=== PATIENT | male | born 1980 | race American Indian/Alaskan Native ===

== ENCOUNTER 2021-03-16 09:19 | Emergency (ER) | payer SELFPAY ==
[2021-03-16 09:50] VITALS: BP 145/90
--- NOTE | 2021-03-16 10:25 | Emergency Department Report ---
ED Extremity Problem HPI - General Chief complaint: Extremity Injury, Lower Stated complaint: RT KNEE PAIN Time Seen by Provider: 03/16/21 10:09 Source: patient Mode of arrival: Ambulatory Limitations: No Limitations - History of Present Illness Initial comments: Patient is a 40-year-old male presents emergency room complaints of right knee pain that began 2 days ago. 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 He states he does heavy lifting and frequently has to get in and out of the truck. 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 He states he is not sure if he might have tweaked his knee getting out of the truck. He denies falling to the ground or any significant trauma. He denies ever injuring this knee in the past. He is ambulatory. He denies any numbness, weakness, leg swelling, calf pain. No past medical history. Allergy to penicillin. Severity scale (0 -10): 5 - Related Data Previous Rx's Medication Instructions Recorded Last Taken Type Menthol/Camphor [[place] Anthony 1 applicatio TP BID #18 oint...g. 03/16/21 Unknown Rx Ointment] Naproxen 375 mg PO BID PRN #14 tablet 03/16/21 Unknown Rx Allergies Allergy/AdvReac Type Severity Reaction Status Date / Time Penicillins Allergy Rash Verified 03/16/21 09:52 ED Review of Systems ROS: Stated complaint: RT KNEE PAIN Other details as noted in HPI Comment: All other systems reviewed and negative ED Past Medical Hx - Medications Home Medications: Home Medications Medication Instructions Recorded Confirmed Last Taken Type Menthol/Camphor [[place] Anthony 1 applicatio TP BID #18 oint...g. 03/16/21 Unknown Rx Ointment] Naproxen 375 mg PO BID PRN #14 tablet 03/16/21 Unknown Rx ED Physical Exam - General Limitations: No Limitations General appearance: alert, in no apparent distress - Head Head exam: Present: atraumatic, normocephalic - Eye Eye exam: Present: normal appearance - ENT ENT exam: Present: mucous membranes moist - Extremities Exam Extremities exam: Present: other (no bony ttp of the RLE, no edema to the RLE, no skin changes, FROM of the RLE, mild discomfort with varus stress, no deformity, neurovascularly intact) - Neurological Exam Neurological exam: Present: alert, oriented X3 - Psychiatric Psychiatric exam: Present: normal affect, normal mood - Skin Skin exam: Present: warm, dry, intact ED Course Vital Signs 03/16/21 03/16/21 09:47 11:11 Temperature 99.0 F Pulse Rate 100 H 88 Respiratory 16 Rate Blood Pressure 145/90 O2 Sat by Pulse 92 97 Oximetry ED Medical Decision Making - Radiology Data Radiology results: report reviewed Ordering Physician: JAS BILLY Date of Service: 03/16/21 Procedure(s): XR knee 3V RT Accession Number(s): [id number] cc: JAS BILLY Fluoro Time In Minutes: RIGHT KNEE 3 VIEW(S) INDICATION / CLINICAL INFORMATION: right knee pain COMPARISON: None available. FINDINGS: BONES / JOINT(S): No acute fracture or subluxation. No significant arthritis. SOFT TISSUES: No significant abnormality. ADDITIONAL FINDINGS: None. Signer Name: Nasir Hernandez DO Signed: 03/16/2021 10:45 AM Workstation Name: [id number] Transcribed By: MARISSA Dictated By: NASIR HERNANDEZ DO Electronically Authenticated By: NASIR HERNANDEZ DO Signed Date/Time: 03/16/21 1045 DD/ 1044 TD/TT: - Medical Decision Making Patient is a 40-year-old male presents emergency room complaints of right knee pain that began 2 days ago. 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 He states he does heavy lifting and frequently has to get in and out of the truck. 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 He states he is not sure if he might have tweaked his knee getting out of the truck. He denies falling to the ground or any significant trauma. He denies ever injuring this knee in the past. He is ambulatory. He denies any numbness, weakness, leg swelling, calf pain. No past medical history. Allergy to penicillin. Initial heart rate and oxygen saturation appear to be entered incorrectly, I repeated vitals in exam room and they are within normal limits. on exam: no bony ttp of the RLE, no edema to the RLE, no skin changes, FROM of the RLE, mild discomfort with varus stress, no deformity, neurovascularly intact. XR right knee: BONES / JOINT(S): No acute fracture or subluxation. No significant arthritis. SOFT TISSUES: No significant abnormality. ADDITIONAL FINDINGS: None. Patient placed in Abhijeet wrap by tech and remained neurovascular intact. Discussed results with patient and the importance of orthopedic follow-up. Advised patient Please use medication as prescribed. Do not wear Abhijeet bandage too tightly and do not wear at night while sleeping. May use ice for 15 minutes at a time, rest, elevation of the leg. Do not use heat or ice while using [place] balm. Follow-up with orthopedic doctor. Return to emergency room for any new or worsening symptoms. Critical care attestation.: If time is entered above; I have spent that time in minutes in the direct care of this critically ill patient, excluding procedure time. ED Disposition Clinical Impression: Obesity, morbid, BMI 50 or higher Right knee pain Qualifiers: Chronicity: acute Qualified Code(s): M25.561 - Pain in right knee Disposition: 01 HOME / SELF CARE / HOMELESS Is pt being admited?: No Does the pt Need Aspirin: No Condition: Stable Instructions: Acute Knee Pain, Adult, Obesity, Adult, [id number] Additional Instructions: Please use medication as prescribed. Do not wear Abhijeet bandage too tightly and do not wear at night while sleeping. May use ice for 15 minutes at a time, rest, elevation of the leg. Do not use heat or ice while using [place] balm. Follow-up with orthopedic doctor. Return to emergency room for any new or worsening symptoms. Prescriptions: Naproxen 375 mg PO BID PRN #14 tablet PRN Reason: pain Menthol/Camphor [[place] Anthony Ointment] 1 applicatio TP BID #18 oint...g. Referrals: BUSHRA LITTLE MD [Primary Care Provider] - 3-5 Days KIET MAN MD [Staff Physician] - 3-5 Days [facility] [Provider Group] - 3-5 Days Forms: Work/School Release Form(ED) Time of Disposition: 10:56 Print Language: TAJIK
--- NOTE | 2021-03-16 10:51 | XRay Report ---
RIGHT KNEE 3 VIEW(S) INDICATION / CLINICAL INFORMATION: right knee pain COMPARISON: None available. FINDINGS: BONES / JOINT(S): No acute fracture or subluxation. No significant arthritis. SOFT TISSUES: No significant abnormality. ADDITIONAL FINDINGS: None. Signer Name: Nasir Flores DO Signed: 03/16/2021 10:45 AM Workstation Name: [id number]
== END 2021-03-16 11:14 | disposition home or self-care (01) ==
LOC: ED 09:19
DX: M25.561 Pain in right knee (principal); E66.01 Morbid (severe) obesity due to excess calories; Z68.43 Body mass index [BMI] 50.0-59.9, adult; Z88.0 Allergy status to penicillin
CPT/HCPCS: 99283